=== PATIENT | male | born 1975 | race African-American/Black ===

== ENCOUNTER 2021-07-15 11:09 | Emergency (ER) | payer MEDICAID, SELFPAY ==
--- NOTE | ~2021-07-15 | XR_ITS ---
EXAMINATION: XR SHOULDER, LEFT CLINICAL INFORMATION: Left shoulder pain. COMPARISON: None TECHNIQUE: Three views of the left shoulder. FINDINGS: The bones and soft tissues are normal. No fracture. Glenohumeral and acromioclavicular alignment is anatomic with normal joint space. No abnormal soft tissue calcifications. XR/XR shoulder LT min 2V IMPRESSION: Unremarkable left shoulder.
[2021-07-15 11:32] VITALS: BP 172/105; PULSE 61; RESP 18; TEMP 36.5; O2SAT 100; BMI 29.0
--- NOTE | 2021-07-15 11:52 | ED_ITS ---
HPI - Extremity Injury (Upper) General Chief Complaint: Extremity Problem Stated Complaint: L SHOULDER INJ Time Seen by Provider: 07/15/21 11:51 Source: patient Mode of arrival: ambulatory Limitations: no limitations History of Present Illness complaint: injury to: left and shoulder Onset (ago): week(s) (1) Other Extremity Injury: left: shoulder Other injuries: none Handedness: right Place: other (rolling during karate) Severity: moderate Relieving factors: none Exacerbating factors: movement of extremity Context: direct blow (rolling on ground landed on it during karate) and sports- related injury Associated symptoms: denies other symptoms Related Data Previous Rx's Medication Instructions Recorded cyclobenzaprine 10 mg tablet 10 mg PO TID PRN #14 tab 07/15/21 lidocaine 4 % topical patch 1 patch TOPICAL DAILY PRN #10 ea 07/15/21 lisinopril 20 mg tablet 20 mg PO DAILY #30 tab 07/15/21 Allergies Allergy/AdvReac Type Severity Reaction Status Date / Time No Known Allergies Allergy Verified 07/15/21 12:04 Review of Systems Review of Systems: Constitutional : No Fever, No Chills Cardiovascular : No Chest Pain, No SOB Respiratory : No Cough, No Dyspnea Gastrointestinal : No Nausea, No Vomiting, No Diarrhea, No abdominal Pain Genitourinary : No Dysuria, No Hematuria Musculoskeletal : positive joint pain, No Myalgias, No Joint Swelling Skin : No Skin lacerations, No rash Neuro : No Weakness, No Numbness PMFSH Past Medical History Medical History HTN (hypertension) No known health problems Social History Social History (Updated 07/15/21 @ 12:16 by Dominga Jones DO) Patient Tobacco Use Status: Never used Tobacco Advance Directives: No Advance Directives Information Provided: No Physical Exam Vital Signs: Vital Signs: Last Vital Signs Temp 97.7 F 07/15/21 11:32 Pulse 61 07/15/21 11:32 Resp 18 07/15/21 11:32 BP 172/105 H 07/15/21 11:32 Pulse Ox 100 07/15/21 11:32 Body Mass Index 29.0 Appearance: Alert. Oriented X3. No acute distress. Eyes: Pupils equal, round and reactive to light. ENT: Pharynx normal. Neck: Normal inspection. Neck supple. CVS: Normal heart rate and rhythm. Pulses normal. Respiratory: No respiratory distress. Abdomen: Soft and nontender. Skin: Skin warm and dry. Normal skin color. Extremities: L shoulder ttp aong AC joint some pain with abduction during rotator cuff testing but able to hold strength distal NV intact Neuro: Oriented X 3. No motor deficit. No sensory deficit. Course Course Course Narrative: asymptomatic HTN - needs refill of his lisinopril 20mg MDM - Extremity Injury (Upper) MDM Narrative Medical decision making narrative: 45 yo robles with HTN - 1 week of L shoulder pain after tumble at karate he is distal NV intact, shoulder xray ordered, likely strain - possible rotator cuff injury Procedures Orthopedic Splinting/Casting Injury #1: Side: left Upper Extremity Injury Location: shoulder Upper Extremity Immobilizer: sling/shoulder immobilizer Discharge Plan Discharge Clinical Impression: Left shoulder strain Qualifiers: Encounter type: initial encounter Qualified Code(s): S46.912A - Strain of unspecified muscle, fascia and tendon at shoulder and upper arm level, left arm, initial encounter Instructions: Rotator Cuff Injury (ED), Shoulder Sprain (ED), Shoulder Immobilizer (ED) Additional Instructions: return to ED for any worsening symptoms or concerns sling for 3 days no karate x 2 weeks if this persists for another week you need to see your doctor for possible MRI to assess the rotator cuff area Prescriptions: New cyclobenzaprine 10 mg tablet 10 mg PO TID PRN (Reason: muscle spasm) Qty: 14 RF: 0 lidocaine 4 % adhesive patch,medicated 1 patch topical DAILY PRN (Reason: pain) Qty: 10 RF: 0 lisinopril 20 mg tablet 20 mg PO DAILY Qty: 30 RF: 0
[2021-07-15] MEDS: Lidocaine 4 % Patch ADH..PATCH 1 PATCH TRANSDERMA (12:33)
== END 2021-07-15 12:43 | disposition home or self-care (01) ==
PROVIDERS: Emergency Provider Emergency Medicine; PCP Student in an Organized Health Care Education/Training Program
DX: S46.912A Strain of unspecified muscle, fascia and tendon at shoulder and upper arm level, left arm, initial encounter (principal); M79.622 Pain in left upper arm; W01.0XXA Fall on same level from slipping, tripping and stumbling without subsequent striking against object, initial encounter; Y93.9 Activity, unspecified; Y92.9 Unspecified place or not applicable; Y99.9 Unspecified external cause status; Z79.899 Other long term (current) drug therapy
CPT/HCPCS: 73030; 99284

== ENCOUNTER 2023-05-06 19:19 | Emergency (ER) | payer MEDICAID, SELFPAY ==
--- NOTE | ~2023-05-06 | XR_ITS ---
EXAMINATION: XR KNEE, RIGHT CLINICAL INFORMATION: Atraumatic pain COMPARISON: None available. TECHNIQUE: Four views of the right knee. FINDINGS: No fracture or joint effusion. Alignment is anatomic. Joint spaces are maintained. No abnormal soft tissue calcification. XR/XR knee RT 3V IMPRESSION: Normal right knee.
--- NOTE | ~2023-05-06 | US_ITS ---
EXAMINATION: US VENOUS ULTRASOUND WITH DOPPLER LOWER EXTREMITY, RIGHT CLINICAL INFORMATION: Pain COMPARISON: None available. TECHNIQUE: Ultrasound of the deep veins is performed from the hip to the calf with compression sonography and color and pulse Doppler assessment. Spectral analysis with color-flow imaging is performed. FINDINGS: There is normal venous compression and respiratory variation and augmented flow. The visualized common femoral vein, superficial femoral vein, profunda femoral vein, popliteal vein, and the trifurcation region shows no evidence of deep venous thrombosis. There is no significant popliteal fossa cyst. If the patient's symptoms persist, followup ultrasound in 5 days 7 days might be of value to exclude proximal propagation from a non-visualized calf vein. There are prominent inguinal lymph nodes. US/US venous duplex LE RT IMPRESSION: No DVT demonstrated in the right lower extremity.
[2023-05-06 19:50] VITALS: BP 185/96; PULSE 65; RESP 18; TEMP 36.1; O2SAT 99; BMI 29.7
--- NOTE | 2023-05-06 19:51 | ED.GENADULT ---
HPI - General Adult General Chief complaint: Extremity Injury, Lower Stated complaint: knee pain, no injury Time Seen by Provider: 05/06/23 22:24 Source: patient, family, RN notes reviewed and old records reviewed Mode of arrival: ambulatory History of Present Illness HPI narrative: 47-year-old male with past medical history of hypertension presenting to the ED complaining of atraumatic right knee pain x 1 week, and RLE swelling. 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 Denies recent travel, history of clots, fever/chills, erythema, SOB. Denies taking anticoagulation Onset (ago): week(s) Related Data Previous Rx's Medication Instructions Recorded cyclobenzaprine 10 mg tablet 10 mg PO TID PRN muscle spasm #14 07/15/21 tabs lidocaine 4 % topical patch 1 patch topical DAILY PRN pain #10 07/15/21 ea lisinopril 20 mg tablet 20 mg PO DAILY #30 tabs 07/15/21 Allergies Allergy/AdvReac Type Severity Reaction Status Date / Time No Known Allergies Allergy Verified 05/06/23 19:50 Review of Systems Review of Systems: Constitutional: No Fever, No Chills ENT/Mouth: No Ear Pain, No Nasal Congestion, No Sinus Pain, No Hoarseness, No sore throat, No Rhinorrhea, No Swallowing Difficulty Cardiovascular: No Chest Pain, No SOB, +RLE edema Respiratory: No Cough, No Sputum, No Wheezing Gastrointestinal: No Nausea, No Vomiting, No Diarrhea, No Constipation, No Abdominal pain Musculoskeletal: + joint pain, No Myalgias, + Joint Swelling Skin: No Skin Lesions, No rash Neuro: No Weakness, No Numbness, No Paresthesias Yes all other systems are reviewed and are negative Constitutional: Constitutional: Reports as per [facility] Past Medical History Attestation statement: The following information was validated with the patient. Source: old records reviewed Medical History HTN (hypertension) No known health problems Social History Social History Alcohol intake: never Patient Tobacco Use Status: Never used Tobacco Smoked in Last 30 Days: No Use of substances other than those prescribed or required for medical reasons: No Advance Directives: No Advance Directives Information Provided: No Physical Exam ED Vital Signs: Vital Signs - 24 hr 05/06/23 19:50 Temperature 96.9 F Pulse Rate 65 Respiratory Rate 18 Blood Pressure 185/96 H Pulse Oximetry 99 Oxygen Delivery Method Room Air BMI result Body Mass Index 29.7 Const General: cooperative, healthy appearing and no acute distress Orientation/consciousness: patient oriented x3 Limitations: no limitations HENMT Head: Yes normal to inspection and Yes atraumatic Ears: hearing grossly normal bilaterally General nose exam: Normal external nose present Face and sinus: Yes normal facial exam Eyes General: appearance normal, both eyes and all related structures EOM: EOMs intact bilaterally Neck Neck: Yes normal visual inspection and Yes no meningeal signs Resp Effort & Inspection: normal respiratory effort and no respiratory distress Cardio Rate: regular rate Peripheral pulses: Peripheral pulses 2+ throughout General: Yes no CVA tenderness Back/Spine/Pelvis Back: no CVA tenderness Skin Rashes: no rashes Wounds: no wounds Neuro General: patient oriented x3, tone normal and no meningeal signs Gait exam (Neuro): Normal gait present Extrem Other: Right knee with mild swelling and diffuse tenderness to palpation, no erythema/warmth. Mildly limited flexion secondary to pain. 2+ RLE pitting edema. No calf tenderness, negative Homans sign. Compartments soft Course Course Course Narrative: -right knee x-ray unremarkable. RLE venous duplex ultrasound negative for DVT > Yury wrap applied for comfort and stability, recommended close orthopedic follow-up Results discussed with patient including worrisome signs and symptoms and strict return precautions, and when to return to the emergency department. They verbalized understanding and feel safe for discharge at this time. Medications Administered Discontinued Medications Generic Name Dose Route Start Last Admin Trade Name Andrey PRN Reason Stop Dose Admin Acetaminophen 975 mg 05/06/23 21:42 05/06/23 21:47 Acetaminophen 325 Mg Tablet PO 05/06/23 21:43 975 mg ONCE ONE Administration Ketorolac Tromethamine 30 mg 05/06/23 22:48 05/06/23 22:59 Ketorolac Tromethamine 30 Mg/Ml Vial IM 05/06/23 22:49 30 mg ONCE ONE Administration Medical Decision Making Medical Decision Making MDM Narrative: 47-year-old male with past medical history of hypertension presenting to the ED complaining of atraumatic right knee pain x 1 week, and RLE swelling. On exam vital signs stable, NAD, nontoxic appearing with physical exam as noted above. Concern for tendon/ligamental or meniscus injury vs fracture vs ? DVT. Lower suspicion for CHF, dislocation, septic joint/arthritis or compartment syndrome Plan: X-ray and venous duplex ultrasound ordered in triage Please refer to course for remaining imaging interpretation, conversations with consultants/family, etc. RME- 47 year old male presents for evaluation of right knee pain. Denies any no injury but reports waking if the pain 1 week ago. Denies any history of issues with that knee. Differential Diagnosis Differential Diagnoses: The differential diagnosis associated with the presentation includes As above Independent Interpretation I performed an independent interpretation of an: Plain X-Ray and Ultrasound Radiology Impression Discussion of test interpretation with radiology: I have reviewed the radiologist's reading. External Record Review External record reviewed: Inpatient record, Office record, Outpatient record, Prior outpatient labs, Prior outpatient radiology, Primary care record and Outside ED record Tests considered The following testing was considered but not selected: As above Prescription Management I considered prescription management with: Pain Medication Chronic Conditions Patient?s care impacted by: Hypertension Discharge Plan Discharge Clinical Impression: Acute knee pain, Pedal edema Patient Disposition: Home, Self-Care Instructions: Leg Edema (ED), Knee Pain (ED) Additional Instructions: Your x-ray and ultrasound were unremarkable Wear Yury wrap for comfort and stability Elevate your leg Wear compression stockings Follow-up with her doctor and Orthopedics If symptoms persist or worsen, area begins to look infected, is red or there is drainage return to the ED Prescriptions: No Action cyclobenzaprine 10 mg tablet 10 mg PO TID PRN (Reason: muscle spasm) Qty: 14 0RF lidocaine 4 % adhesive patch,medicated 1 patch topical DAILY PRN (Reason: pain) Qty: 10 0RF Rx Instructions: may leave on for up to 12 hrs lisinopril 20 mg tablet 20 mg PO DAILY Qty: 30 0RF Referrals: [facility] [Provider Group] - 1 week Stand Alone Forms: Work/School Release Interventions: ED Discharge Assessment Last Done: 05/06/23 23:59 Discharge Date/Time: 05/07/23 00:00
[2023-05-06] MEDS: Acetaminophen 325 MG TABLET 975 MG PO (21:47)
[2023-05-06] MEDS: Ketorolac Tromethamine 30 MG/ML VIAL IM (22:59)
--- NOTE | 2023-05-06 23:58 | PC.NURSE ---
Reviewed discharge instructions with pt. pt verbalized understanding, no sign of distress. Education on proper crutches and proper body mechanics.
== END 2023-05-07 | disposition home or self-care (01) ==
PROVIDERS: Emergency Provider Internal Medicine; PCP Student in an Organized Health Care Education/Training Program
DX: M25.561 Pain in right knee (principal); R60.0 Localized edema; I10 Essential (primary) hypertension; Z79.899 Other long term (current) drug therapy
CPT/HCPCS: 73562; 93971; 96372; 99284; J1885

== ENCOUNTER 2023-05-23 11:07 | Outpatient (AMB) | payer MEDICAID, SELFPAY ==
--- NOTE | 2023-05-23 11:28 | A.OFFVIS_ITS ---
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 The patient states that he 1st injured his knee several years ago. He twisted his knee and had acute onset of pain. The patient states that he re- injured his knee approximately 1 month ago. He had intense pain which limited his ability to walk. Most the pain is along the medial aspect of his knee. He states that his knee will give out several times per day. He has done physical therapy exercises which aggravated his pain. He has also had injections in the past which gave him minimal relief. He has tried Tylenol and anti-inflammatory medicines which gave him only mild relief. 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 Vital Signs: BMI result Body Mass Index 29.7 Const Other: Well-nourished well-developed very friendly male awake alert and oriented x3 in no acute distress Extrem Other: Bilateral lower extremity examination shows good capillary refill, no skin lesions noted, normal sensation light touch Right knee examination shows a mild effusion, minimal crepitus with range of motion, tenderness along his medial joint line, positive Vance's test, no instability Results Reviewed Results Reviewed: X-rays of the patient's right knee show minimal diffuse joint space narrowing, no acute bony abnormalities Assessment & Plan Assessment & Plan (1) Right knee pain: Code(s): M25.561 - Pain in right knee Plan: Mr. Mathew presents with progressively worsening right knee pain and mechanical symptoms most likely due to a medial meniscus tear. Thus, I will send the patient for an MRI of his right knee for further evaluation. I will see him back once the MRI is completed to discuss the findings and treatment options. He will continue with his activity modifications in the meantime. Feel free to call me at any time should questions regarding his orthopedic management arise. Thank you very much for asking me to see this very friendly gentleman. I spent 22 minutes in reviewing the patient's records and imaging studies, seeing the patient and documenting in the medical record. (2) Tear of medial meniscus of right knee: Code(s): S83.241A - Other tear of medial meniscus, current injury, right knee, initial encounter Orders: Orders MR knee RT wo con Today S83.241A - Other tear of medial meniscus, current injury, right knee, initial encounter Coding Level of Care Code New Pt Level 2 (45473) Diagnoses Right knee pain M25.561 Tear of medial meniscus of right knee S83.241A
[2023-05-23 11:31] VITALS: BMI 29.7
== END 2023-05-23 11:44 | disposition home or self-care (01) ==
PROVIDERS: PCP Student in an Organized Health Care Education/Training Program; Visit Provider Orthopaedic Surgery
DX: M25.561 Pain in right knee (principal); S83.241A Other tear of medial meniscus, current injury, right knee, initial encounter
CPT/HCPCS: 99202

== ENCOUNTER → 2023-05-23 11:07 | Outpatient (BNVA) | payer MEDICAID, SELFPAY | PROVIDERS: PCP Student in an Organized Health Care Education/Training Program; Visit Provider Orthopaedic Surgery | DX: S83.241A Other tear of medial meniscus, current injury, right knee, initial encounter (principal); M25.561 Pain in right knee | CPT/HCPCS: 99202 ==

== ENCOUNTER 2023-07-25 19:41 | Outpatient (REF) | payer MEDICAID, SELFPAY ==
--- NOTE | ~2023-07-25 | MR_ITS ---
EXAMINATION: MR KNEE WITHOUT CONTRAST, RIGHT CLINICAL INFORMATION: Tear of medial meniscus. COMPARISON: X-ray of the right knee 05/06/2023. TECHNIQUE: MRI of the knee without contrast was performed using routine sequences on a high-field scanner. FINDINGS: MENISCI: Medial Meniscus: Intact Lateral Meniscus: Intact LIGAMENTS: Cruciate: Intact Collateral: Intact EXTENSOR MECHANISM: There is longitudinal increased intermediate signal throughout the patellar tendon. The proximal portion of the tendon may be slightly enlarged. Findings are compatible with tendinosis and/or interstitial partial tearing. No transverse defect or tendon retraction. Quadriceps tendon normal. ARTICULAR CARTILAGE/BONE: Patellofemoral Compartment: There is surface irregularity throughout the medial facet and lateral facet compatible with the superficial fissures. The trochlear cartilage is normal. Overall, mild patellofemoral arthrosis. Medial Compartment: Normal Lateral Compartment: Normal JOINT FLUID AND BURSAE: Small effusion. MR/MR knee RT wo con IMPRESSION: 1. Tendinosis and/or interstitial partial tearing of the proximal patellar tendon. 2. Mild patellofemoral arthrosis. 3. Small joint effusion.
== END 2023-07-25 19:42 | disposition home or self-care (01) ==
LOC: HO.MRI 19:41
PROVIDERS: PCP Student in an Organized Health Care Education/Training Program; Visit Provider Orthopaedic Surgery
DX: S83.241A Other tear of medial meniscus, current injury, right knee, initial encounter (principal)
CPT/HCPCS: 73721

== ENCOUNTER 2023-11-21 13:38 | Outpatient (REF) | payer MEDICAID, SELFPAY ==
[2023-11-21 15:06] LABS: Alanine Aminotransferase 32 U/L (0-40); Albumin Level 4.3 g/dL (3.5-5.0); Alkaline Phosphatase 39 U/L (39-117); Anion Gap 12 (12-20); Aspartate Amino Transferase 24 U/L (5-37); Bilirubin Direct 0.1 mg/dL (0.0-0.5); Bilirubin Total 0.4 mg/dL (0.0-1.0); Blood Urea Nitrogen 18 mg/dL (9-16); Carbon Dioxide 28 mmol/L (22-29); Chloride 105 mmol/L (96-108); Cholesterol 198 mg/dL (<200); Estimated Glomerular Filt Rate > 60; Glucose Random 111 mg/dL (60-115); HDL Cholesterol 48 mg/dL (>40); LDL Cholesterol Calculated 128 mg/dL (<100); Potassium 4.1 mmol/L (3.3-5.1); Sodium 141 mmol/L (135-145); Total Protein 7.5 g/dL (6.5-8.0); Triglycerides 113 mg/dL (<150)
[2023-11-21 15:30] LABS: Prostate Specific Antigen 1.13 ng/mL (<0.05-4.0)
== END 2023-11-21 13:39 | disposition home or self-care (01) ==
LOC: HO.CHCLDS 13:38
PROVIDERS: Visit Provider Student in an Organized Health Care Education/Training Program
DX: I10 Essential (primary) hypertension (principal)
CPT/HCPCS: 36415; 80048; 80061; 80076; 84153

== ENCOUNTER 2024-01-08 10:59 | Outpatient (REF) | payer MEDICAID, SELFPAY ==
[2024-01-08 14:40] LABS: MANUAL DIFF FLAG NO
[2024-01-08 15:15] LABS: Basophils Percent Auto 0.5 % (0-2); Eosinophils Absolute Auto 0.2 X10*3/uL (0.0-0.4); Eosinophils Percent Auto 2.6 % (0-4); Hematocrit 43.9 % (42.0-52.0); Hemoglobin 14.7 g/dl (14.0-18.0); Imm Gran Abs Auto 0.01 X10*3/uL (0.00-0.03); Imm Gran Pct Auto 0.2 % (0.0-0.4); Lymphocytes Absolute Auto 1.8 X10*3/uL (1.2-4.9); Mean Corpuscular HGB Conc 33.5 g/dl (31.0-36.0); Mean Corpuscular Hemoglobin 30.4 pg (27.0-33.0); Mean Corpuscular Volume 90.7 fL (80.0-98.0); Mean Platelet Volume 12.2 fL (9.4-12.4); Monocytes Absolute Auto 0.5 X10*3/uL (0.1-1.2); Monocytes Percent Auto 8.3 % (2-11); Neutrophils Absolute Auto 3.4 x10*3/uL (2.0-8.3); Neutrophils Percent Auto 58.4 % (45-73); Platelet Count 245 X10*3/uL (160-400); Red Blood Count 4.84 X10*6/uL (4.60-5.80); Red Cell Distribution Width 13.2 % (11.0-16.0); White Blood Count 5.9 X10*3/uL (4.8-10.8)
[2024-01-08 15:33] LABS: Uric Acid 6.2 mg/dL (3.4-7.0)
[2024-01-08 16:00] LABS: Erythrocyte Sedimentation Rate 9 MM/HR (0-15)
== END 2024-01-08 11:00 | disposition home or self-care (01) ==
LOC: HO.CHCLDS 10:59
PROVIDERS: Visit Provider Internal Medicine
DX: M25.571 Pain in right ankle and joints of right foot (principal)
CPT/HCPCS: 36415; 84550; 85025; 85652; 86140